=== PATIENT | female | born 1950 | race Caucasian/White ===

== ENCOUNTER → 2017-04-29 12:22 | Outpatient (CLI) | payer MEDICARE, SELFPAY ==
--- NOTE | 2017-04-29 12:26 | RAD_ITS ---
STUDY: X-RAY - LUMBAR SPINE REASON FOR EXAM: Female, 66 years old. Right sided low back pain TECHNIQUE: 5 view(s) of the lumbar spine were obtained. COMPARISON: None FINDINGS: Normal lumbar lordosis. There is no substantial scoliosis. There is a normal alignment of the vertebrae. There is multilevel endplate spondylosis of the lumbar vertebrae. There is multi-level degenerative disc disease with multi-level disc space narrowing. Large amount of stool in the rectal vault can suggest constipation. Stool throughout the colon. The soft tissue structures are unremarkable. RAD/L/S Spine Min 4 Views IMPRESSION: Degenerative changes of the spine, as detailed above. Constipation Electronically Signed: Rakan Heredia MD at 20:58 EST , Service support ,
== END ==
PROVIDERS: Family Provider Internal Medicine; PCP Internal Medicine; Visit Provider Internal Medicine
DX: M54.5 Low back pain (principal)
CPT/HCPCS: 72110

== ENCOUNTER → 2017-05-03 10:26 | Outpatient (CLI) | payer MEDICARE, SELFPAY ==
--- NOTE | 2017-05-03 10:44 | CT_ITS ---
STUDY: CT ABDOMEN AND PELVIS WITHOUT CONTRAST REASON FOR EXAM: Female, 66 years old. Right lower back pain. Microscopic hematuria. RADIATION DOSAGE (If Supplied By Facility): CTDIvol = ( 6.89 ) mGy, DLP = ( 335.69 ) mGycm TECHNIQUE: Transaxial images were obtained from the dome of the diaphragm to the symphysis pubis without oral contrast, and without intravenous contrast. Sagittal and coronal images were reconstructed. Individualized dose optimization techniques were used for this CT. COMPARISON: Comparison is made with prior examination dated April 23, 2016. FINDINGS: There is evidence of bilateral breast prosthesis. Calcification is seen along the peripheral aspect of the breast prostheses worse on the right side. The visualized lung bases are unremarkable. Coronary artery calcification. Stable 1.6 cm septated cyst in the anterior aspect of the left lobe of the liver adjacent to the falciform ligament. Normal gallbladder and extrahepatic biliary system. There are multiple benign calcified granulomata of the spleen. Stable calcified splenic artery aneurysm measuring 9.4 mm. Normal pancreas. Normal bilateral adrenal glands. Normal right kidney. Normal left kidney. Normal visualized stomach. Normal small intestine. Normal colon. There are surgical clips in the region of the appendix consistent with a prior appendectomy. Normal abdominal aorta. Normal inferior vena cava. There is borderline retroperitoneal lymphadenopathy with enlarged nodes no greater than 10mm in the short axis diameter. Normal urinary bladder. There is a small umbilical hernia containing fat. Grade 1 anterior listhesis of L5 on S1. CT/Abdomen/Pelvis without Cont IMPRESSION: No acute abnormality is seen. Electronically Signed: Ant Funez MD at 11:26 EST Tel [phone], Service support ,
== END ==
PROVIDERS: Family Provider Internal Medicine; PCP Internal Medicine; Visit Provider Internal Medicine
DX: M54.5 Low back pain (principal)
CPT/HCPCS: 74176

== ENCOUNTER 2017-06-17 15:00 | Outpatient (RCR) | payer MEDICARE, SELFPAY ==
--- NOTE | 2017-05-05 16:33 | HP.PTEVAL ---
Patient's Visit Information VALERIA WHEELER is a 66 year old F referred to Physical Therapy by Sarah TERRY with a diagnosis of RIGHT LOWER BACK PAIN ,DDD LUMBAR SPINE. Date of Evaluation: 05/05/17 Physical Therapist: Alvaro Rodriguez PT, - Visit Plan Frequency: 2x /Week Duration: 4 Weeks Plan: modalities,DLS,POSTURAL EXS' - Subjective Subjective: This 66 y/o female presents to physical therapy with right low back pain and DDD lumbar.Patient has had ocassionally pain lateral thigh buring. Patient has right lumbar pain 2 months incidous onset noticed latetal pelvis pain with ADLS. Intially ,symptoms worse with sleeping at night. Pain is symptoms decribed as ache ,sharp pain in back.Coughing/sneezing good. Bowel/bladder good.Symptoms better with advil.Seen DR Akers plan PT and had x-rays and Cat scan- for viseral pain. Did showed spondylotothesis L5-S1.9/10 pain at night. SOCAIL: . VOVATION: retired - Pain Right Back Pain Intensity (Out of 10): 3 Pain Intensity Range: 10 - Objective POSTURE: mild foward posture. GAIT: reciprocal pattern. NUERO: denies parathesia/tingling,reflexes 2/3 ,L3-4,L4-5,L5-S1. PALPATION: tender right erector spinals. SYMMTRIES : align. MMT: 4/5 quads/hams ,hip flexion 4-/5,abd 4-/5,ankle 4/5. LUMBAR ROM: flexion WNL,extension WFL pain right lumbar ,side glides to right pain right lumbar ,left side glides WNL. LUMBAR QUADRANT TO RIGHT +. FLEXABLITY: hams WNL - Special Tests L/S Slump test left side: Negative L/S Slump test right side: Negative L/S Left Straight Leg Raise: Negative L/S Right Straight Leg Raise: Negative Lumbar Standing: Flexion - Mechanical Response: No effect Lumbar Standing: Flexion - Symptoms During Testing: No effect Lumbar Standing: Flexion - Symptoms After Testing: No effect Lumbar Standing: Extension - Mechanical Response: No effect Lumbar Standing: Extension - Symptoms During Testing: Increases Lumbar Standing: Extension - Symptoms After Testing: No worse Lumbar Standing: Right Side Glides - Mechanical Response: No effect Lumbar Standing: Right Side [place] - Symptoms During Testing: Increases Lumbar Standing: Right Side [place] - Symptoms After Testing: No worse Lumbar Standing: Left Side [place] - Mechanical Response: No effect Lumbar Standing: Left Side [place] - Symptoms During Testing: No effect Lumbar Standing: Left Side [place] - Symptoms After Testing: No effect Lumbar Lying: Flexion - Mechanical Response: No effect Lumbar Lying: Flexion - Symptoms During Testing: No effect Lumbar Lying: Flexion - Symptoms After Testing: No effect Lumbar Lying: Extension - Mechanical Response: No effect Lumbar Lying: Extension - Symptoms During Testing: Increases Lumbar Lying: Extension - Symptoms After Testing: No worse - Goals Goal 1:: Independant with HEP Goal Time Frame: 4-6 Weeks Goal 2:: Independant with posture/body mechanics for ADL'S Goal Time Frame: 4-6 Weeks Goal 3:: Derease right lumbar pain by 50% or greater to improve function to iclude sleeping. Goal Time Frame: 4-6 Weeks Goal 4:: Patient improve lumbar ROM without pain to improve function Goal Time Frame: 4-6 Weeks Goal 5:: Patient be able to perform ADL'S and job demands with min pain. Goal Time Frame: 4-6 Weeks - Rehabilitation Potential Physical Therapy Diagnosis: Patient has lumbar pain on right lumbar region possible lateral stenosis pain with extension and rotation to right ,sleepin worse ,with decrease core strength. Rehabilitation Potential: Good - Anticipated Interventions Patient/Client Instruction: Educate patient on: Condition, Plan of Care For the Purpose of:: To decrease pain, To increase ROM, To improve muscle performance and motor function, To improve ability to perform ADL's, To increase tolerance to activity/condition/position, To improve performance and independence with ADL's, To improve ability of physical actions for home/community/work/leisure, To improve health of tissue, To decrease soft tissue restriction, To increase flexibility/ROM, To improve ability to perform tasks related to life management Therapeutic Exercise to Include: Strength training, Body mechanics, Postural training, Flexibilty training, Dynamic Lumbar Stabilization For the Purpose of:: To decrease pain, To increase ROM, To improve muscle performance and motor function, To improve ability to perform ADL's, To increase tolerance to activity/condition/position, To improve performance and independence with ADL's, To improve ability of physical actions for home/community/work/leisure, To improve health of tissue, To decrease soft tissue restriction, To increase flexibility/ROM TENS: Yes Cryotherapy (ice pack, ice massage): Yes Thermo therapy (hot pack): Yes Ultrasound (thermal/non thermal): Yes For the Purpose of:: To decrease pain, To increase ROM, To improve nutrient delivery to tissue, To increase oxygenation perfusion, To improve health of tissue, To decrease soft tissue restriction Thank you for the opportunity to evaluate your patient. For Medicare and Medicare HMO plans, please review the plan of care and approve it. It will need to be FAXED BACK to us at [phone] for Medicare purposes. Please let me know if there are questions or concerns regarding this plan of care. Physician Signature: Date:
--- NOTE | 2017-06-17 15:01 | HP.PTREVAL_ITS ---
Sarah Akers, It has been my pleasure to treat VALERIA WHEELER over the last 6 visits for RIGHT LOWER BACK PAIN ,DDD LUMBAR SPINE. Please see the progress note below for an update on the physical therapy plan of care! Subjective: Doing good no pain today Objective/Function: ODALIS TX WELL DID WITH EX'S NO PAIN. PROGRESSING WITH INCREASING STRENGTH Plan Plan: modalities,DLS,POSTURAL EXS' Goals Goal 1:: Independant with HEP Goal Time Frame: 4-6 Weeks Goal 2:: Independant with posture/body mechanics for ADL'S Goal Time Frame: 4-6 Weeks Goal 3:: Derease right lumbar pain by 50% or greater to improve function to iclude sleeping. Goal Time Frame: 4-6 Weeks Goal 4:: Patient improve lumbar ROM without pain to improve function Goal Time Frame: 4-6 Weeks Goal 5:: Patient be able to perform ADL'S and job demands with min pain. Goal Time Frame: 4-6 Weeks Anticipated Interventions Patient/Client Instruction: Educate patient on: Condition, Plan of Care For the Purpose of:: To decrease pain, To increase ROM, To improve muscle performance and motor function, To improve ability to perform ADL's, To increase tolerance to activity/condition/position, To improve performance and independence with ADL's, To improve ability of physical actions for home/ community/work/leisure, To improve health of tissue, To decrease soft tissue restriction, To increase flexibility/ROM, To improve ability to perform tasks related to life management Therapeutic Exercise to Include: Strength training, Body mechanics, Postural training, Flexibilty training, Dynamic Lumbar Stabilization For the Purpose of:: To decrease pain, To increase ROM, To improve muscle performance and motor function, To improve ability to perform ADL's, To increase tolerance to activity/condition/position, To improve performance and independence with ADL's, To improve ability of physical actions for home/ community/work/leisure, To improve health of tissue, To decrease soft tissue restriction, To increase flexibility/ROM TENS: Yes Cryotherapy (ice pack, ice massage): Yes Thermo therapy (hot pack): Yes Ultrasound (thermal/non thermal): Yes For the Purpose of:: To decrease pain, To increase ROM, To improve nutrient delivery to tissue, To increase oxygenation perfusion, To improve health of tissue, To decrease soft tissue restriction Please do not hesitate to contact me at [phone] by phone or Fax: if you have questions or concerns regarding this new plan of care! Sincerely, Alvaro Rodriguez PT,
--- NOTE | 2017-10-29 15:54 | HP.PTDCNRP_ITS ---
HP - Discharge Summary (1) - Patient Information VALERIA WHEELER was seen in my office for initial evaluation on 05/05/17. The following Plan of Care was established for this patient: Initial Frequency: 2x /Week Initial Duration: 4 Weeks - Anticipated Interventions Patient/Client Instruction: Educate patient on: Condition, Plan of Care For the Purpose of:: To decrease pain, To increase ROM, To improve muscle performance and motor function, To improve ability to perform ADL's, To increase tolerance to activity/condition/position, To improve performance and independence with ADL's, To improve ability of physical actions for home/ community/work/leisure, To improve health of tissue, To decrease soft tissue restriction, To increase flexibility/ROM, To improve ability to perform tasks related to life management Therapeutic Exercise to Include: Strength training, Body mechanics, Postural training, Flexibilty training, Dynamic Lumbar Stabilization For the Purpose of:: To decrease pain, To increase ROM, To improve muscle performance and motor function, To improve ability to perform ADL's, To increase tolerance to activity/condition/position, To improve performance and independence with ADL's, To improve ability of physical actions for home/ community/work/leisure, To improve health of tissue, To decrease soft tissue restriction, To increase flexibility/ROM TENS: Yes Cryotherapy (ice pack, ice massage): Yes Thermo therapy (hot pack): Yes Ultrasound (thermal/non thermal): Yes For the Purpose of:: To decrease pain, To increase ROM, To improve nutrient delivery to tissue, To increase oxygenation perfusion, To improve health of tissue, To decrease soft tissue restriction This patient was last seen in our office 06/17/17. Pertinent comments regarding their Physical therapy will appear below: This patient seen for PT for lumbar pain focusing on DLS,postural ex's and modalities for pain releivw. Patient doing well thus is d/c. At this point I will be discontinuing this patient from physical therapy. I would be happy to see this patient again in the future if found appropriate by the physician. Thank you! Alvaro Rodriguez, PT,
== END 2017-06-17 19:00 | disposition home or self-care (01) ==
LOC: PT 15:00
PROVIDERS: Family Provider Internal Medicine; PCP Internal Medicine; Visit Provider Internal Medicine
DX: M54.5 Low back pain (principal); M51.36 Other intervertebral disc degeneration, lumbar region
CPT/HCPCS: 97014; 97035; 97110; 97162; G0283

== ENCOUNTER → 2017-07-02 10:15 | Outpatient (CLI) | payer MEDICARE, SELFPAY ==
--- NOTE | 2017-07-02 10:45 | MRI_ITS ---
STUDY: MRI LUMBAR SPINE WITHOUT CONTRAST REASON FOR EXAM: Female, 66 years old. Low back pain TECHNIQUE: Standardized fat and water weighted pulse sequences were obtained in the sagittal and axial planes. COMPARISON: X-ray 04/29/2017 FINDINGS: There is a transitional vertebra designated L5 for the purposes of this dictation (image 9/13 sagittal T2). T12-L1: There is mild disc desiccation (image 7/13 sagittal T2). There is disc desiccation, loss of disc space height, endplate spondylosis and broad-based central/right preforaminal disc protrusion at T11-T12. Spinal stenosis is mild (image 8, 7, 6/13 sagittal T2, 28/30 axial T2). There is degenerative disc disease at the lower thoracic spine (image 7/13 sagittal T2). There is mild curvature at the thoracolumbar region with a convexity to the left (image 19, 20/27 coronal localizer). Normal conus medullaris that terminates at the T12-L1 level. L1-2: There is mild disc desiccation (image 7/13 sagittal T2). L2-3: There is mild disc desiccation (image 9/13 sagittal T2). L3-4: There is mild disc desiccation and mild facet osteoarthritis (image 7/30 axial T2, 8, 9/13 sagittal T2).. L4-5: There is disc desiccation, facet osteoarthritis and hypertrophy and mild degenerative spondylolisthesis (image 9, 8/13 sagittal T2, /30 axial T2). Spinal stenosis is mild. L5-S1: Normal endplates. Normal disc height, hydration and morphology. Normal bilateral facet joints. Normal central canal and bilateral lateral recesses. Normal bilateral intervertebral neural foramina. 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 There is chronic osseous erosion of the sacrum. Normal visualized sacral ala. Normal visualized paraspinous soft tissue structures. MRI/Spine Lumbar (Routine) IMPRESSION: Transitional vertebra designated L5 for the purposes of this dictation, presumably partial sacralization of L5 Mild degenerative spondylolisthesis, L4-L5, with mild spinal stenosis Degenerative disc protrusion, T11-T12, with mild spinal stenosis Multilevel degenerative disc disease Mild curvature at the thoracolumbar region with a convexity to the left Electronically Signed: Darrell Ferreira MD at 10:52 EDT Tel , Service support ,
== END ==
PROVIDERS: Family Provider Internal Medicine; PCP Internal Medicine; Visit Provider Internal Medicine
DX: M54.9 Dorsalgia, unspecified (principal)
CPT/HCPCS: 72148

== ENCOUNTER → 2018-01-20 09:47 | Outpatient (CLI) | payer MEDICARE, SELFPAY ==
--- NOTE | 2018-01-20 09:49 | BI_ITS ---
MAMMOGRAPHY - BILATERAL SCREENING REASON FOR EXAM: Female, 67 years old. Routine annual screening examination. PERTINENT HISTORY: Non-contributory. Bilateral breast implants. TECHNIQUE: Digital bilateral breast gurpreet (3D mammographic acquisition) in the CC and MLO projections. 2-D mediolateral oblique (MLO) and craniocaudad (CC) views of both breasts were obtained. CAD: Full Field Digital Mammography with Computer Added Detection was performed. COMPARISON: Comparison is made with prior examination dated January 19, 2017 and September 05, 2013. FINDINGS: Breast Composition: The breasts are heterogeneously dense, which may obscure small masses. There are no dominant masses or suspicious calcifications. Stable appearance of the bilateral breast implants with calcifications involving the margins slightly more prominent on the right side. No other significant abnormalities are identified. There has been no significant change since the prior study. BI/SCREENING MAMM (CAD), BILAT IMPRESSION: Stable bilateral screening mammogram. Yearly follow-up mammogram recommended. (A) ASSESSMENT CATEGORY: BIRADS Category 2: Benign. A letter regarding these results will be sent to the patient by the facility within 30 days. Approximately 10% of breast cancers are not detected by mammography. A normal mammogram should not delay biopsy of a clinically suspicious abnormality. [id number] Electronically Signed: Ant Funez MD at 13:56 EDT Tel [phone], Service support ,
== END ==
PROVIDERS: Family Provider Internal Medicine; PCP Internal Medicine; Referring Provider Internal Medicine; Visit Provider Internal Medicine
DX: Z12.31 Encounter for screening mammogram for malignant neoplasm of breast (principal)
CPT/HCPCS: 77063; 77067

== ENCOUNTER → 2018-03-07 12:31 | Outpatient (CLI) | payer MEDICARE, SELFPAY ==
--- NOTE | 2018-03-07 12:43 | RAD_ITS ---
STUDY: X-RAY CHEST REASON FOR EXAM: Female, 67 years old. Asthma. TECHNIQUE: Frontal and lateral views of the chest. COMPARISON: September 09, 2015 FINDINGS: There is no new focal consolidation. There are bilateral breast implants in place with peripheral calcifications more pronounced on the right. Normal size heart. Normal mediastinum and josh. Normal visualized pulmonary arteries. Normal visualized aortic arch and descending thoracic aorta. Normal visualized thoracic spine. Normal visualized ribs, clavicles, and shoulders. There is no demonstrated abnormality of the visualized soft tissue structures of the upper abdomen. RAD/Chest PA and Lateral IMPRESSION: No acute cardiopulmonary process. Electronically Signed: Tiara Garcia MD at 17:02 EST Tel , Service support ,
== END ==
PROVIDERS: Family Provider Internal Medicine; PCP Internal Medicine; Referring Provider Nurse Practitioner Gerontology; Visit Provider Nurse Practitioner Gerontology
DX: J45.901 Unspecified asthma with (acute) exacerbation (principal)
CPT/HCPCS: 71046

== ENCOUNTER → 2018-05-13 09:54 | Outpatient (CLI) | payer MEDICARE, SELFPAY ==
--- NOTE | 2018-05-13 09:57 | ECHOD_ITS ---
Reason For Study: SOB Procedure This was a 2D Doppler, Color Flow transthoracic echocardiogram. Exam performed in department. Left Ventricle Normal LV size. Left ventricular systolic function is normal. The estimated ejection fraction is 60 %. Stage 1 diastolic dysfunction. No regional wall motion abnormalities noted. Right Ventricle Normal RV size. Normal systolic function. Atria Normal left atrium. Normal right atrium. Mitral Valve Normal mitral valve. Tricuspid Valve Normal tricuspid valve. Mild tricuspid valve insufficiency. Pulmonary artery systolic pressure is 30 mmHg. Aortic Valve Normal aortic valve. Trisinus/trileaflet aortic valve. Pulmonic Valve Normal pulmonic valve. Great Vessels Normal aortic root. The pulmonary artery is normal size. Normal inferior vena cava. Pericardium/Pleural No pericardial effusion. MMode/2D Measurements & Calculations LVIDd: 4.2 cm IVSd: 0.92 cm Ao root diam: 3.2 cm LVIDs: 2.5 cm LVPWd: 0.87 cm FS: 41.0 % LAV(MOD-bp): 55.9 ml EDV(MOD-sp4): 75.0 ml EDV(MOD-sp2): 70.6 ml LAV(MOD-bp) Indexed: 34.0 ml/m2 ESV(MOD-sp4): 28.3 ml EF(MOD-sp2): 59.7 % LAV(MOD-sp2): 59.8 ml EF(MOD-sp4): 62.3 % LAV(MOD-sp4): 50.6 ml SV(MOD-sp4): 46.7 ml SV(MOD-sp2): 42.1 ml LA A4 area: 18.3 cm2 LA dimension(2D): 3.8 cm RA A4 area: 14.6 cm2 Doppler Measurements & Calculations MV E max hever: 96.6 cm/sec Lat Peak E' Hever: 7.6 cm/sec Med Peak E' Hever: 6.6 cm/sec MV A max hever: 85.8 cm/sec E/E' lat: 12.8 E/E' med: 14.7 MV E/A: 1.1 Ao V2 max: 130.6 cm/sec LV V1 max: 105.6 cm/sec PA V2 max: 100.8 cm/sec Ao max P.8 mmHg LV V1 max P.5 mmHg TR max hever: 250.5 cm/sec TR max P.1 mmHg Interpretation Summary Normal LV size. Left ventricular systolic function is normal. The estimated ejection fraction is 60 %. Stage 1 diastolic dysfunction. Mild tricuspid valve insufficiency. The global longitudinal strain = -17.6 % (normal). Ordering Physician: Sarah Akers Referring Physician: Sarah Akers Performed By: Angie Jones RDCS
== END ==
PROVIDERS: Family Provider Internal Medicine; PCP Internal Medicine; Referring Provider Internal Medicine; Visit Provider Internal Medicine
DX: R06.02 Shortness of breath (principal)
CPT/HCPCS: 93306

== ENCOUNTER → 2018-06-24 09:48 | Outpatient (CLI) | payer MEDICARE, SELFPAY ==
[2018-06-24 12:36] LABS: Absolute Lymphocyte Count 1.48 X10^3/ul (0.83-4.51); Absolute Neutrophil Count 4.2 X10^3/uL (2.0-7.7); Basophil# 0.02 X10^3/uL; Basophil% 0.3 % (0-1); Eosinophil# 0.36 X10^3/uL; Eosinophils% 5.5 % (0-5); Hematocrit 43.5 % (37-47); Hemoglobin 13.7 g/dl (12.0-15.0); Lymphocyte # 1.48 X10^3/ul (4.0); Lymphocyte % 22.6 % (19-41); Mean Corp Hgb Conc 31.5 g/gl (32-36); Mean Corpuscular Hgb 31.6 pg (27.0-32.0); Mean Corpuscular Volume 100.5 fL (81-99); Monocyte# 0.51 X10^3/uL; Monocyte% 7.8 % (0-10); Neutrophil # 4.15 X10^3/uL (2.7-7.7); Neutrophil % 63.5 % (47-70); POSITIVE COUNT NO; POSITIVE DIFFERENTIAL NO; POSITIVE MORPHOLOGY NO; Platelet Count 185 K/mm3 (150-450); RBC Distribution Width CV 12.9 % (11.6-14.6); RBC Distribution Width SD 47.1 fl (35.1-43.9); Red Blood Count 4.33 M/mm3 (4.2-5.4); White Blood Count 6.5 K/mm3 (4.4-11.0)
[2018-07-02 14:33] LABS: Immunoglobulin E < 2 IU/mL (6-495)
== END ==
PROVIDERS: Family Provider Internal Medicine; PCP Internal Medicine; Referring Provider Internal Medicine Pulmonary Disease; Visit Provider Internal Medicine Pulmonary Disease
DX: J45.909 Unspecified asthma, uncomplicated (principal); T78.40XA Allergy, unspecified, initial encounter
CPT/HCPCS: 36415; 82785; 85025

== ENCOUNTER → 2018-08-02 | Outpatient (CLI) | payer MEDICARE, SELFPAY | END | disposition home or self-care (01) | PROVIDERS: Family Provider Internal Medicine; PCP Internal Medicine; Referring Provider Internal Medicine Pulmonary Disease; Visit Provider Internal Medicine Pulmonary Disease | DX: J45.909 Unspecified asthma, uncomplicated (principal); T78.40XA Allergy, unspecified, initial encounter | CPT/HCPCS: 36415 ==

== ENCOUNTER → 2018-09-13 | Outpatient (CLI) | payer MEDICARE, SELFPAY ==
--- NOTE | 2018-09-13 | CYSPIN_PTH ---
PATIENT: VALERIA WHEELER LOC: [facility] U#:[id number] AGE/SX: 67/F ROOM: RE09/13/[address]: Dr. Sarah Akers MD : [id number] BED: DIS: 09/13/2018 SPEC #: [id number] RECD: 09/14/18 10:51 STATUS: SHIKHA MCKINLEYKarla #: [id number] YAMILEX: 09/13/18 00:[address]: Sarah Akers DEPT: CYTOLOGY RECD BY: Antonino Mchugh Tissues: Urine Procedures: Pap Stain (control) Special Stain Group II AFB Stain (control) Cytospin Fluid HEADER OPERATION: Not noted PRE-OP DIAGNOSIS: Abnormal urine TISSUE SUBMITTED: Urine for cytology DIAGNOSIS CYTOLOGY Urine, cytology: Negative for malignant cells. Benign urothelial cells, histiocytes, acute and chronic inflammatory cells and numerous bacteria present. Acid fast stain with appropriate control is negative for acid fast bacilli. CE:geeta 09/14/18 CYTOLOGY STUDY Slides are reviewed. CYTOLOGY GROSS Received is 15 ml of yellow cloudy fluid labeled with the patient's name and and designated per the requisition as urine. Submitted for cytology preparation. / 09/14/18 TC:2 CPT: 11437, 22055
[2018-09-13 13:11] LABS: Cytology, Body Fluid / CSF SEE PATHOLOGY REPORT
[2018-09-13 13:38] LABS: Color, Urine Yellow (Yellow); Glucose, Dipstick Normal (Normal); Ketone-Dipstick 5 mg/dl (Negative); Leukocyte Esterase-Dipstick 500 /ul (Negative); Nitrite-Dipstick Negative (Negative); Occult Blood-Urine Negative /ul (Negative); Protein-Dipstick 15 mg/dl (Negative); Specific Gravity, Urine 1.025 (1.002-1.030); Urine Bilirubin Dipstick Negative (Negative); Urine Clarity Clear (Clear); Urine Urobilinogen Normal (Normal)
== END | disposition home or self-care (01) ==
LOC: LABSPEC 12:21
PROVIDERS: Referring Provider Internal Medicine; Visit Provider Internal Medicine
DX: R82.90 Unspecified abnormal findings in urine (principal)
CPT/HCPCS: 81002; 88108; 88313

== ENCOUNTER → 2019-01-31 08:15 | Outpatient (CLI) | payer MEDICARE, SELFPAY ==
[2019-01-31 10:14] LABS: Absolute Lymphocyte Count 1.29 X10^3/uL (0.83-4.51); Absolute Neutrophil Count 4.1 X10^3/uL (2.0-7.7); Basophil# 0.04 X10^3/uL; Basophil% 0.7 % (0-1); Eosinophil# 0.14 X10^3/uL; Eosinophils% 2.3 % (0-5); Hematocrit 41.4 % (37-47); Hemoglobin 13.1 g/dL (12.0-15.0); Lymphocyte # 1.29 X10^3/ul (4.0); Lymphocyte % 21.5 % (19-41); Mean Corp Hgb Conc 31.6 g/dL (32-36); Mean Corpuscular Hgb 31.3 pg (27.0-32.0); Mean Corpuscular Volume 98.8 fL (81-99); Mean Platelet Vol. 10.5 fl (6.2-12.0); Monocyte# 0.46 X10^3/uL; Monocyte% 7.7 % (0-10); NRBC Flagged by Analyzer 0 % (0-5); Neutrophil # 4.05 X10^3/uL (2.7-7.7); Neutrophil % 67.5 % (47-70); Platelet Count 215 K/mm3 (150-450); RBC Distribution Width CV 13.3 % (11.6-14.6); RBC Distribution Width SD 48.4 fl (35.1-43.9); Red Blood Count 4.19 M/mm3 (4.2-5.4)
[2019-02-03 17:03] LABS: Immunoglobulin E 4 IU/mL (6-495)
== END ==
PROVIDERS: Family Provider Internal Medicine; PCP Internal Medicine; Referring Provider Internal Medicine Pulmonary Disease; Visit Provider Internal Medicine Pulmonary Disease
DX: J45.909 Unspecified asthma, uncomplicated (principal); Z91.09 Other allergy status, other than to drugs and biological substances
CPT/HCPCS: 36415; 82785; 85025

== ENCOUNTER → 2019-09-07 11:23 | Outpatient (CLI) | payer MEDICARE, SELFPAY ==
[2019-09-11 12:07] LABS: Immunoglobulin A 62 mg/dL (87-352); Immunoglobulin G 473 mg/dL (586-1602); Immunoglobulin M 160 mg/dL (26-217)
[2019-09-11 13:14] LABS: Immunoglobulin E 8 IU/mL (6-495)
== END ==
PROVIDERS: PCP Internal Medicine; Referring Provider Internal Medicine Pulmonary Disease; Visit Provider Internal Medicine Pulmonary Disease
DX: J45.909 Unspecified asthma, uncomplicated (principal)
CPT/HCPCS: 36415; 82784; 82785

== ENCOUNTER → 2019-10-10 08:49 | Outpatient (CLI) | payer MEDICARE, SELFPAY ==
--- NOTE | 2019-10-10 08:54 | CDU_ITS ---
Reason For Study: carotid stenosis Rt. Velocities/BP Lt. Velocities/BP Prox CCA 79.9/18.6 cm/sec. Prox CCA 82.5/18.6 cm/sec. Mid CCA 94.3/22.6 cm/sec. Mid CCA 68.2/18.6 cm/sec. Dist CCA 53.9/13.4 cm/sec. Dist CCA 60.4/16.0 cm/sec. Prox ICA 56.5/14.7 cm/sec. Prox ICA 59.1/19.9 cm/sec. Mid ICA 73.4/30.4 cm/sec. Mid ICA 64.3/21.2 cm/sec. Dist ICA 95.6/38.2 cm/sec. Dist ICA 68.2/27.8 cm/sec. Rt. ICA/CCA = 1.0. Lt. ICA/CCA = 1.0. Prox ECA 74.7/9.5 cm/sec. Prox ECA 49.9/8.2 cm/sec. Rt. Vert. 35.6/8.2 cm/sec. Lt. Vert. 53.8/27.8 cm/sec. Right Extracranial There is intimal thickening but no significant atherosclerotic plaque noted in the right common carotid artery. There is heterogeneous, irregular atherosclerotic plaque noted in the right internal carotid artery. There is homogeneous, smooth atherosclerotic plaque noted in the right external carotid artery. Antegrade flow is noted in the right vertebral artery. Left Extracranial There is intimal thickening but no significant atherosclerotic plaque noted in the left common carotid artery. There is heterogeneous, irregular atherosclerotic plaque noted in the left internal carotid artery. There is intimal thickening but no significant atherosclerotic plaque noted in the left external carotid artery. Antegrade flow is noted in the left vertebral artery. Interpretation Summary Mild (<50%) stenosis right extracranial internal carotid. Mild (<50%) stenosis left extracranial internal carotid. Flow within the vertebral arteries is antegrade bilaterally. Ordering Physician: Sarah Akers Performed By: Naldo Pereira RVT
== END ==
PROVIDERS: PCP Internal Medicine; Referring Provider Internal Medicine; Visit Provider Internal Medicine
DX: I65.23 Occlusion and stenosis of bilateral carotid arteries (principal)
CPT/HCPCS: 93880

== ENCOUNTER → 2019-10-12 09:23 | Outpatient (CLI) | payer MEDICARE, SELFPAY ==
[2019-10-13 20:07] LABS: IgG, Quant 456 mg/dL (586-1602); Immunoglobulin G, Subclass 1 274 mg/dL (248-810); Immunoglobulin G, Subclass 2 108 mg/dL (130-555); Immunoglobulin G, Subclass 3 27 mg/dL (15-102)
[2019-10-13 20:25] LABS: Immunoglobulin G, Subclass 4 25 mg/dL (2-96)
== END ==
PROVIDERS: PCP Internal Medicine; Referring Provider Internal Medicine Pulmonary Disease; Visit Provider Internal Medicine Pulmonary Disease
DX: J45.909 Unspecified asthma, uncomplicated (principal)
CPT/HCPCS: 36415; 82784; 82787

== ENCOUNTER → 2019-11-01 07:57 | Outpatient (CLI) | payer MEDICARE, SELFPAY ==
--- NOTE | 2019-11-01 08:01 | CT_ITS ---
STUDY: CTA OF THE ABDOMINAL AORTA AND VISCERAL BRANCHES. REASON FOR EXAM: Female, 68 years old. ANEURYSM SPLENIC ARTERY RADIATION DOSAGE (If Supplied By Facility): CTDIvol = ( 18.26 ) mGy, DLP = ( 284.59 ) mGycm TECHNIQUE: Axial CT angiography multi-detector data acquisition was obtained from the dome of the liver to the iliac crests following intravenous administration of IV 100 ML ISOVUE 370. Axial images and MIP images were reconstructed from the axial data set. Post-processing of the angiographic images was performed, with multiplanar reformation and 3D reconstruction. Individualized dose optimization techniques were used for this CT. TECHNICAL QUALITY: Good COMPARISON: Comparison is made with prior examination dated 05/03/2017. Descriptors of Narrowing: None (0%) Mild (< 50%) Moderate (50-70%) Severe (70-90%) Subtotal/Total Occlusion (90-100%) Non-Evaluable (technically non-diagnostic FINDINGS: Once again, stable appearance of the bilateral breast implants with dense rim calcifications bilaterally. Stable mild increased markings at the lung bases suggestive of scarring. Abdominal aorta: No demonstrated narrowing. Celiac and superior mesenteric arteries: No demonstrated narrowing. Stable appearance of the 1 cm splenic artery aneurysm. This is in the region of the splenic hilum. Fine rim-like calcification is present. Stable splenic granulomas. Inferior mesenteric artery: No demonstrated narrowing. Right renal artery(arteries): No demonstrated narrowing. Left renal artery(arteries): No demonstrated narrowing. This space narrowing and spondylosis with subchondral sclerosis at the T12 11 level. Stable minimal anterolisthesis of L5 on S1. CT/CTA Abdomen W/WO Contrast IMPRESSION: Stable appearance of the 1 cm splenic artery aneurysm with rim-like calcification in the region of the splenic hilum. Electronically Signed: Ant Funez, at 11:18 EDT , Service support ,
[2019-11-01 08:21] LABS: CREATININE FINGERSTICK 0.7 mg/dL (0.55-1.02)
== END ==
PROVIDERS: PCP Internal Medicine; Referring Provider Internal Medicine; Visit Provider Internal Medicine
DX: I72.8 Aneurysm of other specified arteries (principal)
CPT/HCPCS: 74175; Q9967

== ENCOUNTER → 2019-12-13 11:22 | Outpatient (CLI) | payer MEDICARE, SELFPAY ==
--- NOTE | 2019-12-13 11:24 | BI_ITS ---
MAMMOGRAPHY - BILATERAL SCREENING REASON FOR EXAM: Female, 69 years old. Routine annual screening examination. PERTINENT HISTORY: Non-contributory. Bilateral breast implants. TECHNIQUE: Digital bilateral breast ant (3D mammographic acquisition) in the CC and MLO projections. 2-D mediolateral oblique (MLO) and craniocaudad (CC) views of both breasts were obtained. CAD: Full Field Digital Mammography with Computer Added Detection was performed. COMPARISON: Comparison is made with prior study dated 01/20/2018 and 01/19/2017. FINDINGS: Breast Composition: The breasts are heterogeneously dense, which may obscure small masses. There are no dominant masses or suspicious calcifications. Stable appearance of the bilateral breast implants with calcifications along the margins of the implants more prominent on the right side. No other significant abnormalities are identified. There has been no significant change since the prior study. BI/SCREEN MAMM (CAD) W/ANT BILAT IMPRESSION: Stable bilateral screening mammogram. Yearly follow-up mammogram recommended. (A) ASSESSMENT CATEGORY: BIRADS Category 2: Benign. A letter regarding these results will be sent to the patient by the facility within 30 days. Approximately 10% of breast cancers are not detected by mammography. A normal mammogram should not delay biopsy of a clinically suspicious abnormality. [id number] Electronically Signed: Ant Funez, at 12:49 EDT , Service support ,
--- NOTE | 2019-12-13 11:27 | BD_ITS ---
STUDY: DUAL ENERGY X-RAY ABSORPTIOMETRY / DXA REASON FOR EXAM: Female, 69 years old. 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 COMPARISON: Comparison is made with prior study 01/19/2017. FINDINGS: Lumbar Spine (L1-L4): g/cm2 (0.835) / T-score (-3.0) / Z-score (-1.4) Findings are suggestive of osteoporosis with a high fracture risk. Increased thoracic kyphosis. Left Femur Total: g/cm2 (0.770) / T-score (-1.9) / Z-score (-0.4) Left Femoral Neck: g/cm2 (0.726) / T-score (-2.2) / Z-score (-0.6) Right Femur Total: g/cm2 (0.719) / T-score (-2.3) / Z-score (-0.8) Right Femoral Neck: g/cm2 (0.659) / T-score (-2.7) / Z-score (-1.0) The T-Scores on the most recent prior examination were: Lumbar Spine (L1-L4): There has been worsening of bone density since the previous examination. Left Femur Total: which represents a worsening of 0.6%. Right Femur Total: which represents a worsening of 8.1%. BD/Dexa Bone Density Study IMPRESSION: The patient is considered osteoporotic as outlined below according to World Julio C Organization (WHO) criteria with a high fracture risk. There has been worsening of bone density since the previous examination. Reference Information: The T-score is the number of standard deviations above or below the standard which is normal for young adults at their peak bone mineral density. The World Health Organization (WHO) interprets the T-scores as follows: Above -1 Normal bone density Between -1 and -2.5 Osteopenia Equal to / or below -2.5 Osteoporosis As a practical clinical guideline, osteopenia may be graded as follows: Mild -1 through -1.5 Moderate -1.6 through -2.0 Severe -2.1 through -2.4 The Z-score is the number of standard deviations above or below age-matched controls. A Z-score of less than -1.5 would be considered abnormal. References: 1. NIH Osteoporosis and Related Bone Diseases http://www.osteo.org 2. International Society for Clinical Densitometry http://www.iscd.org 3. National Osteoporosis Foundation http://www.nof.org Electronically Signed: Ant Funez, at 14:12 EDT , Service support ,
== END ==
PROVIDERS: PCP Internal Medicine; Referring Provider Internal Medicine; Visit Provider Internal Medicine
DX: Z12.31 Encounter for screening mammogram for malignant neoplasm of breast (principal); Z78.0 Asymptomatic menopausal state
CPT/HCPCS: 77063; 77067; 77080

== ENCOUNTER → 2020-04-18 12:25 | Outpatient (CLI) | payer MEDICARE, SELFPAY ==
--- NOTE | 2020-04-18 12:34 | MRI_ITS ---
STUDY: MRI LUMBAR SPINE WITHOUT CONTRAST REASON FOR EXAM: Female, 69 years old. RIGHT SIDED BACK PAIN TECHNIQUE: Standardized fat and water weighted pulse sequences were obtained in the sagittal and axial planes. COMPARISON: 07/02/2017 FINDINGS: T11-T12: No change in the moderate right paracentral and foraminal protrusion which produces moderate spinal stenosis and mild right neural foraminal stenosis. T12-L1: Normal endplates. Normal disc height, hydration and morphology. Normal bilateral facet joints. Normal central canal and bilateral lateral recesses. Normal bilateral intervertebral neural foramina. Normal lumbar lordosis. Mild levoscoliosis of the thoracolumbar spine. Normal conus medullaris that terminates at the L1. L1-2: Normal endplates. Normal disc height, hydration and morphology. Normal bilateral facet joints. Normal central canal and bilateral lateral recesses. Normal bilateral intervertebral neural foramina. L2-3: Mild bilateral facet hypertrophy and ligament flavum hypertrophy. No change in the mild bilobed disc protrusion which produces mild spinal stenosis, mild bilateral lateral recess stenosis, mild left neural foraminal stenosis and moderate right neural foraminal stenosis with abutment of the right L2 nerve root laterally. L3-4: Mild bilateral facet hypertrophy and ligament flavum hypertrophy. No change in the mild bilobed disc protrusion which produces mild spinal stenosis with mild bilateral lateral recess stenosis and mild bilateral neural foraminal stenosis. L4-5: Moderate bilateral facet hypertrophy and mild ligament flavum hypertrophy. No change in the 2 mm of anterolisthesis of L4 on L5 with a mild broad disc protrusion which produces mild spinal stenosis and mild bilateral neural foraminal stenosis. L5-S1: Rudimentary disc at L5/S1 without spinal stenosis or neural foraminal stenosis. Normal visualized sacral ala. Normal visualized paraspinous soft tissue structures. MRI/Spine Lumbar (Routine) IMPRESSION: No change in 07/02/2017. Electronically Signed: Josh Rodriguez MD at 13:36 EST Tel , Service support ,
== END ==
PROVIDERS: PCP Internal Medicine; Referring Provider Internal Medicine; Visit Provider Internal Medicine
DX: M54.9 Dorsalgia, unspecified (principal)
CPT/HCPCS: 72148

== ENCOUNTER → 2020-12-12 11:33 | Outpatient (CLI) | payer MEDICARE, SELFPAY ==
[2020-12-12 15:12] LABS: Absolute Lymphocyte Count 1.38 X10^3/uL (0.83-4.51); Basophil# 0.05 X10^3/uL; Basophil% 0.9 % (0-1); Eosinophil# 0.94 X10^3/uL; Eosinophils% 16.3 % (0-5); Hematocrit 43.2 % (37-47); Hemoglobin 13.6 g/dL (12.0-15.0); Lymphocyte # 1.38 X10^3/ul (0.83-4.51); Mean Corp Hgb Conc 31.5 g/dL (32-36); Mean Corpuscular Hgb 31.7 pg (27.0-32.0); Mean Corpuscular Volume 100.7 fL (81-99); Mean Platelet Vol. 10.8 fl (6.2-12.0); Monocyte# 0.32 X10^3/uL; Monocyte% 5.6 % (0-10); NRBC Flagged by Analyzer 0 % (0-5); Neutrophil # 3.03 X10^3/uL (2.7-7.7); Neutrophil % 52.5 % (47-70); Platelet Count 180 K/mm3 (150-450); RBC Distribution Width SD 48.3 fl (35.1-43.9); Red Blood Count 4.29 M/mm3 (4.2-5.4); White Blood Count 5.8 K/mm3 (4.4-11.0)
== END ==
PROVIDERS: PCP Internal Medicine; Referring Provider Internal Medicine Pulmonary Disease; Visit Provider Internal Medicine Pulmonary Disease
DX: J45.909 Unspecified asthma, uncomplicated (principal)
CPT/HCPCS: 36415; 85025

== ENCOUNTER → 2021-01-01 10:21 | Outpatient (CLI) | payer MEDICARE, SELFPAY ==
--- NOTE | 2021-01-01 10:24 | BI_ITS ---
MAMMOGRAPHY - BILATERAL SCREENING 3-D TOMOSYNTHESIS REASON FOR EXAM: Female, 70 years old. SCREENING PERTINENT HISTORY: No significant family history. TECHNIQUE: 2-D mammograms and 3-D Tomosynthesis of the breast (s) were performed. CAD was performed. COMPARISON: 12/13/2019 FINDINGS: The breast composition is heterogeneously dense that can obscure small breast masses. Grouped punctate calcifications in the upper-outer quadrant right breast at mid depth and magnification views recommended for further evaluation. No suspicious calcifications left breast.. No dense spiculated masses or suspicious microcalcifications are identified. No architectural distortion is identified. There is no skin thickening or retraction. There has been no significant change since the prior study. Bilateral retroglandular silicone implants appear intact. BI/SCRN MAMM (CAD)W/ANT BILAT IMPRESSION: Grouped punctate calcifications in the upper outer quadrant right breast and magnification views recommended for further evaluation. ASSESSMENT CATEGORY: BIRADS Category 0: Incomplete. Need additional imaging evaluation as above. A letter regarding these results will be sent to the patient by the facility within 30 days. FOLLOW UP RECOMMENDATION: Additional imaging recommended as above. (E) Approximately 10% of breast cancers are not detected by mammography. A normal mammogram should not delay biopsy of a clinically suspicious abnormality. Electronically Signed: Josh Rodriguez MD at 13:25 EDT Tel , Service support ,
== END ==
PROVIDERS: PCP Internal Medicine; Referring Provider Internal Medicine; Visit Provider Internal Medicine
DX: Z12.31 Encounter for screening mammogram for malignant neoplasm of breast (principal)
CPT/HCPCS: 77063; 77067

== ENCOUNTER → 2021-01-08 09:14 | Outpatient (CLI) | payer MEDICARE, SELFPAY ==
--- NOTE | 2021-01-08 09:25 | BI_ITS ---
MAMMOGRAPHY - UNILATERAL DIAGNOSTIC: RIGHT BREAST REASON FOR EXAM: Female, 70 years old. Abnormal screening mammogram. PERTINENT HISTORY: Non-contributory. TECHNIQUE: Compression magnification views of the right breast were obtained. CAD: Full Field Digital Mammography with Computer Added Detection was performed. COMPARISON: Comparison is made with prior mammogram dated 01/01/2021 and 12/13/2019. FINDINGS: Breast Composition: The breasts are heterogeneously dense, which may obscure small masses. The calcifications in the upper outer quadrant of the right breast at the increased in number as compared to prior examination. Biopsy recommended. No other significant abnormalities are identified. BI/DIAG MAMM W/CAD, UNILAT IMPRESSION: Increased number of calcifications within the cluster in the upper outer quadrant of the right breast as described. Biopsy is recommended. ASSESSMENT CATEGORY: BIRADS Category 4: Suspicious - Biopsy Should Be Considered. A letter regarding these results will be sent to the patient by the facility within 30 days. Approximately 10% of breast cancers are not detected by mammography. A normal mammogram should not delay biopsy of a clinically suspicious abnormality. Electronically Signed: Ant Funez MD at 10:49 EDT , Service support ,
== END ==
PROVIDERS: PCP Internal Medicine; Referring Provider Internal Medicine; Visit Provider Internal Medicine
DX: R92.0 Mammographic microcalcification found on diagnostic imaging of breast (principal)
CPT/HCPCS: 77065

== ENCOUNTER → 2021-01-17 10:16 | Outpatient (CLI) | payer MEDICARE, SELFPAY ==
--- NOTE | 2021-01-17 10:46 | HP.PCM_ITS ---
History and Physical Date of Admission: 01/17/21 Visit Reasons: BIRADS 4 RIGHT BREAST Chief Complaint: abn mammo right Backup Operator Required: No Is patient in pain?: No Allergies codeine Allergy (Verified 01/14/21 13:20) Other Medications montelukast 10 mg PO DAILY 09/09/15 [History Confirmed 01/14/21] aspirin 81 mg chewable tablet 81 mg PO DAILY 04/23/20 [History Confirmed 01/14/21] atorvastatin 40 mg tablet 40 mg PO DAILY 04/23/20 [History Confirmed 01/14/21] omeprazole magnesium 20 mg tablet,delayed release 20 mg PO DAILY 04/23/20 [History Confirmed 01/14/21] Lactobacillus acidophilus 1.5 mg (250 million cell) capsule 100 mmu cells PO DAILY 01/14/21 [History Confirmed 01/14/21] citalopram 20 mg tablet 20 mg PO DAILY tab 01/14/21 [History Confirmed 01/14/21] fluticasone furoate 100 mcg-vilanterol 25 mcg/dose inhalation powder 1 inh INHALATION DAILY 01/14/21 [History Confirmed 01/14/21] omega-3 fatty acids 1,000 mg capsule 1,000 mg PO DAILY 01/14/21 [History Confirmed 01/14/21] omega-3 fatty acids 1,000 mg capsule 1,000 mg PO DAILY 01/14/21 [History Confirmed 01/14/21] psyllium husk 0.52 gram capsule 0.52 g PO DAILY 01/14/21 [History Confirmed 01/14/21] vitamin K2 100 mcg capsule 100 mcg PO DAILY 01/14/21 [History Confirmed 01/14/21] Is last menstrual period known: No Post menopausal: Yes Patient : No PFSH Medical History (Updated 01/14/21 @ 13:10 by Solange John) Abnormal mammogram Allergic eosinophilic esophagitis Anxiety Asthma Carotid stenosis Hyperlipidemia Splenic artery aneurysm Surgical History (Updated 01/14/21 @ 13:21 by Solange John) History of breast augmentation History of esophagogastroduodenoscopy (EGD) History of neck surgery History of tubal ligation History of wisdom tooth extraction Family History (Updated 01/14/21 @ 13:11 by Solange John) Father CVA (cerebral vascular accident) Mother CVA (cerebral vascular accident) Social History (Updated 01/14/21 @ 13:11 by Solange John) Smoking Status: Never smoker HPI HPI HPI: VALERIA WHEELER, is a 70 F who presents to the office today for surgical consultation regarding an abnormal mammogram. The patient is referred by Dr. Sarah Akers and a written copy of my surgical consult recommendations will return to her. On 01/01/2021 she had routine bilateral screening mammography. These were compared to previous examinations of 12/13/2019. Breast implants noted. There were felt to be grouped punctate calcifications upper outer quadrant right breast. BI-RADS Category 0. Then on 01/08/2021 she had diagnostic right mammograms. The grouped calcifications were felt to have increased. BI-RADS Category 4. Biopsy recommended. 70-year-old female. G0. Menarche at age 12. No previous breast biopsy. Not on any estrogen replacement therapy. No family history of breast cancer. She does have bilateral implants in place. 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 SCREENING PERTINENT HISTORY: No significant family history. TECHNIQUE: 2-D mammograms and 3-D Tomosynthesis of the breast (s) were performed. CAD was performed. COMPARISON: 12/13/2019 FINDINGS: The breast composition is heterogeneously dense that can obscure small breast masses. Grouped punctate calcifications in the upper-outer quadrant right breast at mid depth and magnification views recommended for further evaluation. No suspicious calcifications left breast.. No dense spiculated masses or suspicious microcalcifications are identified. No architectural distortion is identified. There is no skin thickening or retraction. There has been no significant change since the prior study. Bilateral retroglandular silicone implants appear intact. BI/SCRN MAMM (CAD)W/ANT BILAT IMPRESSION: Grouped punctate calcifications in the upper outer quadrant right breast and magnification views recommended for further evaluation. ASSESSMENT CATEGORY: BIRADS Category 0: Incomplete. Need additional imaging evaluation as above. A letter regarding these results will be sent to the patient by the facility within 30 days. FOLLOW UP RECOMMENDATION: Additional imaging recommended as above. (E) Approximately 10% of breast cancers are not detected by mammography. A normal mammogram should not delay biopsy of a clinically suspicious abnormality. Electronically Signed: Josh Rodriguez MD at 13:25 EDT Tel , Service support , 01/08/2021 MAMMOGRAPHY - UNILATERAL DIAGNOSTIC: RIGHT BREAST REASON FOR EXAM: Female, 70 years old. Abnormal screening mammogram. PERTINENT HISTORY: Non-contributory. TECHNIQUE: Compression magnification views of the right breast were obtained. CAD: Full Field Digital Mammography with Computer Added Detection was performed. COMPARISON: Comparison is made with prior mammogram dated 01/01/2021 and 12/13/2019. FINDINGS: Breast Composition: The breasts are heterogeneously dense, which may obscure small masses. The calcifications in the upper outer quadrant of the right breast at the increased in number as compared to prior examination. Biopsy recommended. No other significant abnormalities are identified. BI/DIAG MAMM W/CAD, UNILAT IMPRESSION: Increased number of calcifications within the cluster in the upper outer quadrant of the right breast as described. Biopsy is recommended. ASSESSMENT CATEGORY: BIRADS Category 4: Suspicious - Biopsy Should Be Considered. A letter regarding these results will be sent to the patient by the facility within 30 days. Approximately 10% of breast cancers are not detected by mammography. A normal mammogram should not delay biopsy of a clinically suspicious abnormality. Electronically Signed: Ant Funez MD at 10:49 EDT , Service support , ROS General General: No weight change, appetite, fatigue, colon cancer, breast cancer or weakness HEENT HEENT: No difficulty swallowing, eye injury, eye surgery, swollen glands or hoarseness Endo Endocrine: No thyroid disease, diabetes mellitus, thyroid cancer, Hair loss, heat intolerance or cold intolerance Musc Musculoskeletal: No back problems, arthritis, rheumatoid arthritis, gout or joint pain Cardio Cardiovascular: No murmur, pacemaker, heart disease, atrial fibrillation, high blood pressure, heart attack, heart stent, palpitations, shortness of breat with exertion or chest pain Psych Psychiatric: Yes anxiety; No depression or hearing voices Resp Respiratory: No shortness of breath, No sleep apnea, No cough, No COPD, Yes asthma, No emphysema and No wheezing Gastro Gastrointestinal: No abdominal pain, No nausea or vomiting, No diarrhea, No constipation, No blood in stool, No acid reflux, No hemorrhoids, No ulcers, No gallbladder problem and No black,tarry stools Black Hematologic: Yes blood thinners, No blood disorders, No bleeding, No anemia and No blood clots Neuro Neurologic: No weakness Exam Const General: cooperative, healthy appearing, comfortable and no acute distress Nutritional Appearance: average body habitus Orientation: alert and awake [facility] Head: normal to inspection Eyes General: appearance normal, both eyes and all related structures Chest Other: Right breast: Implant noted firm throughout, no focal masses, no axillary or clavicular adenopathy Left breast: Implant is softer, no focal masses, no axillary or clavicular adenopathy Assessment and Plan Assessment and Plan (1) Abnormal mammogram of right breast: Plan - Dr. Cash Quintero MD: I recommended the patient stereotactic needle core biopsy right breast upper outer quadrant. The patient is aware of technique, benefit, risk alternatives. She already has a ruptured implant right breast. She is aware that there is increased risk of implant injury with this procedure. She has had an opportunity ask and have questions answered. We will schedule and expedite her care. I appreciate the opportunity of assisting with surgical management. Copy: Dr. Sarah Quintero M.D., F.A.C.S. I have re-examined the patient. There are no clinical changes since date of exam.
--- NOTE | 2021-01-17 11:00 | BRBX_PTH ---
PATIENT: VALERIA WHEELER LOC: [facility] U#:[id number] AGE/SX: 74/F ROOM: RE01/17/[address]: Dr. Cash Quintero MD : 1950 BED: DIS: SPEC #: [id number] RECD: 01/17/21 11:48 STATUS: [facility] [place] #: [id number] YAMILEX: 01/17/21 11:[address]: Cash Quintero DEPT: SURGICAL PATHOLOGY RECD BY: Sol Sanders ENTERED: 01/17/21 11:54 SP TYPE: BREAST BX OTHR DR: Dr. Sarah Akers MD Tissues: Right breast, NOS Procedures: Surgery Specimen Level IV HEADER OPERATION: Right breast stereotactic biopsy PRE-OP DIAGNOSIS: Right breast calcifications TISSUE SUBMITTED: Right breast core tissue ISCHEMIC TIME: 1 minute FIXATION TIME: 56.5 hours MICROSCOPIC DIAGNOSIS Right breast, core biopsy: Hyalinized fibroadenoma with clustered microcalcifications. Minimal fibrocystic change. No evidence of malignancy. AM:geeta 01/20/2021 MICROSCOPIC DESCRIPTION Slides are reviewed. GROSS DESCRIPTION Received in fixative is one container labeled with the patient's name and designated right breast. The specimen consists of multiple elongated fragments of mora-yellow fibroadipose tissue that in aggregate measure 4 x 1.5 x 0.2 cm. The entire specimen is submitted in two cassettes. / SJ:geeta 01/17/21 TC:5 [facility]: [id number]
--- NOTE | 2021-02-17 14:42 | PCM.OPRPT ---
Problems Associated Problem List Diagnoses (1) Breast calcification, right: Report of Operation Date of Procedure: 01/17/21 Pre-Operative Diagnosis: Microcalcifications upper outer quadrant right breast Post-Operative Diagnosis: Same Surgery/Procedure Performed:: Stereotactic needle core biopsy upper outer quadrant right breast Description of Surgical Findings:: Timeout and informed consent was obtained. The patient is taken the procedure room placed prone on the table the right breast was compressed. Images were obtained demonstrating the area of microcalcifications. The breast was prepped with Betadine. 1% lidocaine was used as local anesthetic total 10 cc was used. Local was instilled. A small stab incision was created. The 8 gauge resolved needle was placed prefire depth. Prefire films were obtained demonstrating adequate localization. Device was fired several cores were obtained. Specimen mammograms were obtained demonstrating microcalcifications present within the cores. Marking clip was left at 12 o'clock position. She was released with advised pressure was held for hemostasis Steri-Strip Telfa OpSite dressings applied. Blood loss was minimal no apparent complications the specimens were immediately transferred to formalin for analysis. Final pathology pending. Cash Quintero M.D., F.A.C.S. Surgeon: Cash Quintero Type of Anesthesia: Local
== END ==
PROVIDERS: PCP Internal Medicine; Referring Provider Surgery; Visit Provider Surgery
DX: D24.1 Benign neoplasm of right breast (principal)
CPT/HCPCS: 19081; 88305

== ENCOUNTER → 2021-02-19 | Outpatient (CLI) | payer MEDICARE, SELFPAY | END | disposition home or self-care (01) | PROVIDERS: PCP Internal Medicine; Visit Provider Internal Medicine | DX: R05.9 Cough, unspecified (principal) | CPT/HCPCS: 87635; U0005; U0003 ==

== ENCOUNTER → 2021-02-26 12:17 | Outpatient (CLI) | payer MEDICARE, SELFPAY ==
[2021-02-26 15:16] LABS: AST(SGOT) 17 U/L (15-37); Alanine Aminotransfer ALT/SGPT 30 U/L (13-56); Albumin, Serum 3.5 g/dL (3.2-5.0); Alkaline Phosphatase 82 U/L (45-117); Bilirubin, Direct 0.18 mg/dL (0.00-0.30); Cholesterol 166 mg/dL (200); Globulin 3.3 g/dL (2.2-4.2); High Density Lipoprotein 79 mg/dL; Protein, Total 6.8 g/dL (6.4-8.2); Triglycerides 78 mg/dL; Very Low Density Lipoprotein 16 mg/dL (5-40)
== END ==
PROVIDERS: PCP Internal Medicine; Referring Provider Internal Medicine; Visit Provider Internal Medicine
DX: E78.5 Hyperlipidemia, unspecified (principal); M85.80 Other specified disorders of bone density and structure, unspecified site
CPT/HCPCS: 36415; 80061; 80076; 82306

== ENCOUNTER 2021-03-14 13:00 | Outpatient (CLI) | payer MEDICARE, SELFPAY ==
[2021-03-14 13:09] VITALS: BP 145/65; PULSE 70; RESP 16; TEMP 36.9; BMI 24.4
[2021-03-14] MEDS: 0.9% Saline Lock 10 ML Syringe IV (13:14)
[2021-03-14 13:46] VITALS: BP 126/98; PULSE 69; RESP 16; TEMP 37.2
[2021-03-14 14:46] VITALS: BP 133/73; PULSE 67; RESP 16; TEMP 36.9; O2SAT 94
== END 2021-03-14 14:46 | disposition home or self-care (01) ==
LOC: MS3OUT 13:00 → MS3 13:01
PROVIDERS: PCP Internal Medicine; Referring Provider Nurse Practitioner Adult Health; Visit Provider Nurse Practitioner Adult Health
DX: Z23 Encounter for immunization (principal); U07.1 COVID-19
CPT/HCPCS: J7050; M0245; Q0245; A4216

== ENCOUNTER → 2021-08-22 | Outpatient (CLI) | payer MEDICARE, SELFPAY ==
[2021-08-22 13:06] LABS: ALB/GLOB Ratio 1.3 RATIO (0.9-2.4); AST(SGOT) 22 U/L (15-37); Alanine Aminotransfer ALT/SGPT 41 U/L (13-56); Albumin, Serum 3.8 g/dL (3.2-5.0); Alkaline Phosphatase 79 U/L (45-117); Anion Gap 5 (5-15); BUN 22 mg/dL (7-18); BUN/Creat Ratio 30.9 RATIO (10-20); Calcium,Total 9.1 mg/dL (8.5-10.1); Chloride 104 mmol/L (98-107); Cholesterol 147 mg/dL (200); Creatinine, Serum 0.71 mg/dL (0.55-1.02); EST Glomerular Filtration Rate 86 mL/min (>60); Est Glom Filt Rate - Afr Amer 104 mL/min (>60); Glucose 112 mg/dL (74-106); High Density Lipoprotein 63 mg/dL; Potassium 3.9 mmol/L (3.5-5.1); Protein, Total 6.8 g/dL (6.4-8.2); Sodium Level 138 mmol/L (136-145); Triglycerides 87 mg/dL; Very Low Density Lipoprotein 17 mg/dL (5-40)
== END | disposition home or self-care (01) ==
LOC: MTLAB 09:41
PROVIDERS: PCP Internal Medicine; Referring Provider Internal Medicine; Visit Provider Internal Medicine
DX: E78.5 Hyperlipidemia, unspecified (principal)
CPT/HCPCS: 36415; 80053; 80061

== ENCOUNTER → 2021-12-02 | Outpatient (CLI) | payer MEDICARE, SELFPAY ==
--- NOTE | 2021-12-02 08:04 | CT_ITS ---
HISTORY: Aneurysm of splenic artery. TECHNIQUE: Helically acquired images were obtained of the abdomen after IV contrast administration. A radiation dose optimization technique was used for this scan. IV Contrast dosage and agent: 100 mL Isovue 370. Oral contrast: None. 361. COMPARISON: CTA 11/01/2019. CT 05/03/2017. FINDINGS: LOWER CHEST: Calcified breast implant capsules. Minimal atelectasis in the lung bases. BOWEL: Bowel including appendix nondilated. Colonic diverticulosis. No pericolonic inflammation in the visualized portion of the colon. PERITONEUM: No significant free fluid. LIVER: Mild geographic fatty infiltration in the right lobe. Stable 2.3 cm cyst in the left lobe adjacent to the falciform ligament. GALLBLADDER/BILIARY TREE: Gallbladder present. SPLEEN: Calcified granulomas. PANCREAS/KIDNEYS/ADRENAL GLANDS: Unremarkable. VESSELS: 9 x 10 mm peripherally calcified splenic artery aneurysm at the splenic hilum. No abdominal aortic aneurysm. Mild calcified plaque in the abdominal aorta and origins of the renal arteries. ABDOMINAL WALL: Tiny fat-containing umbilical hernia. OSSEOUS STRUCTURES: Degenerative change with mild thoracolumbar scoliosis. Stable bone island in the right iliac. CT/Abdomen WITH IV Contrast IMPRESSION: No significant interval change in size of the peripherally calcified splenic artery aneurysm. Colonic diverticulosis without acute diverticulitis in the abdomen. Fatty infiltration of the liver with a stable cyst in the left lobe. Electronically Signed: Yue Ham MD at 8:31 EDT ,
[2021-12-02 08:26] LABS: CREATININE FINGERSTICK < 0.9 mg/dL (0.55-1.02); EGFR FINGERSTICK > 60.0000 mL/min (>60)
== END | disposition home or self-care (01) ==
LOC: CT 07:53
PROVIDERS: PCP Internal Medicine; Referring Provider Internal Medicine; Visit Provider Internal Medicine
DX: I72.8 Aneurysm of other specified arteries (principal); K76.89 Other specified diseases of liver
CPT/HCPCS: 74160; Q9967

== ENCOUNTER → 2022-01-06 | Outpatient (CLI) | payer MEDICARE, SELFPAY ==
--- NOTE | 2022-01-06 09:49 | BI_ITS ---
MAMMOGRAPHY - BILATERAL SCREENING REASON FOR EXAM: Female, 71 years old. Routine annual screening examination. PERTINENT HISTORY: Non-contributory. Prior right stereotactic breast biopsy. Bilateral breast implants. TECHNIQUE: Digital bilateral breast ant (3D mammographic acquisition) in the CC and MLO projections. 2-D mediolateral oblique (MLO) and craniocaudad (CC) views of both breasts were obtained. CAD: Full Field Digital Mammography with Computer Added Detection was performed. COMPARISON: Comparison is made with prior study dated 01/01/2021 and 12/13/2019. FINDINGS: Breast Composition: The breasts are heterogeneously dense, which may obscure small masses. Stable appearance of the bilateral breast implants with peripheral calcification. A tissue clip marker is seen within the 4.3 mm nodule in the upper outer quadrant of the right breast. No other significant abnormalities are identified. BI/SCRN MAMM (CAD)W/ANT BILAT IMPRESSION: Status post right breast biopsy. Stable appearance of the bilateral breast implants. Yearly follow-up mammogram recommended. (A) ASSESSMENT CATEGORY: BIRADS Category 2: Benign. A letter regarding these results will be sent to the patient by the facility within 30 days. Approximately 10% of breast cancers are not detected by mammography. A normal mammogram should not delay biopsy of a clinically suspicious abnormality. [id number] Electronically Signed: Ant Funez MD at 11:37 EDT ,
--- NOTE | 2022-01-06 10:00 | BD_ITS ---
STUDY: DUAL ENERGY X-RAY ABSORPTIOMETRY / DXA REASON FOR EXAM: Female, 71 years old. M85.89. Patient is postmenopausal. TECHNIQUE: Bone Mineral Density (BMD) measurements of lumbar spine and bilateral hips were obtained. COMPARISON: Comparison is made with prior examination of 12/13/2019. FINDINGS: Lumbar Spine (L1-L4): g/cm2 (0.695) / T-score (-3.3) / Z-score (-1.0) Findings are suggestive of osteoporosis with a high fracture risk. Left Femur Total: g/cm2 (0.703) / T-score (-2.0) / Z-score (-0.3) Left Femoral Neck: g/cm2 (0.506) / T-score (-3.1) / Z-score (-1.2) Right Femur Total: g/cm2 (0.748) / T-score (-1.6) / Z-score (0.0) Right Femoral Neck: g/cm2 (0.542) / T-score (-2.8) / Z-score (-0.8) The T-Scores on the most recent prior examination were: Lumbar Spine (L1-L4): There has been improvement of bone density since the previous examination. Left Femur Total: which represents a worsening of 1.1%. Right Femur Total: which represents an improvement of 13.1%. BD/Dexa Bone Density Study IMPRESSION: The patient is considered osteoporotic as outlined below according to World Julio C Organization (WHO) criteria with a high fracture risk. There has been improvement of bone density since the previous examination. Reference Information: The T-score is the number of standard deviations above or below the standard which is normal for young adults at their peak bone mineral density. The World Health Organization (WHO) interprets the T-scores as follows: Above -1 Normal bone density Between -1 and -2.5 Osteopenia Equal to / or below -2.5 Osteoporosis As a practical clinical guideline, osteopenia may be graded as follows: Mild -1 through -1.5 Moderate -1.6 through -2.0 Severe -2.1 through -2.4 The Z-score is the number of standard deviations above or below age-matched controls. A Z-score of less than -1.5 would be considered abnormal. References: 1. NIH Osteoporosis and Related Bone Diseases www osteo.org 2. International Society for Clinical Densitometry www iscd.org 3. National Osteoporosis Foundation www nof.org Electronically Signed: Ant Funez MD at 10:22 EDT ,
== END | disposition home or self-care (01) ==
LOC: OPBD 09:47
PROVIDERS: PCP Internal Medicine; Referring Provider Internal Medicine; Visit Provider Internal Medicine
DX: Z12.31 Encounter for screening mammogram for malignant neoplasm of breast (principal); Z98.82 Breast implant status; M85.80 Other specified disorders of bone density and structure, unspecified site; M81.0 Age-related osteoporosis without current pathological fracture; Z92.89 Personal history of other medical treatment; Z78.0 Asymptomatic menopausal state
CPT/HCPCS: 77063; 77067; 77080

== ENCOUNTER → 2022-12-11 | Outpatient (CLI) | payer MEDICARE, SELFPAY ==
[2022-12-11 10:35] LABS: Anion Gap 7 (5-15); BUN 23 mg/dL (7-18); BUN/Creat Ratio 31.7 RATIO (10-20); Calcium,Total 9.2 mg/dL (8.5-10.1); Chloride 105 mmol/L (98-107); Creatinine, Serum 0.73 mg/dL (0.55-1.02); EST Glomerular Filtration Rate 84 mL/min (>60); Est Glom Filt Rate - Afr Amer 101 mL/min (>60); Glucose 135 mg/dL (74-106); Magnesium 1.9 mg/dL (1.6-2.6); Potassium 3.9 mmol/L (3.5-5.1); Sodium Level 139 mmol/L (136-145); Troponin-I HS 6 pg/mL (3.0-54.0)
== END | disposition home or self-care (01) ==
LOC: LABSPEC 09:54
PROVIDERS: PCP Internal Medicine; Referring Provider Internal Medicine; Visit Provider Internal Medicine
DX: R20.2 Paresthesia of skin (principal); R07.89 Other chest pain
CPT/HCPCS: 80048; 83735; 84443; 84484

== ENCOUNTER → 2022-12-31 | Outpatient (CLI) | payer MEDICARE, SELFPAY ==
--- NOTE | 2022-12-31 18:09 | STRESSREP ---
Stress Test Report Exercise myocardial perfusion stress test. 72-year-old lady with a history of chest pain Stress protocol: Resting EKG demonstrates normal sinus rhythm with a rate of 65 bpm resting blood pressure is 124/72 mmHg. The patient exercised according to the regular Gregg protocol for a total duration of 6 minutes attaining a maximum heart rate of 134 bpm which was 91% of maximum predicted heart rate; the maximum workload was 7 metabolic equivalents. At rest there were no ST or T wave changes noted to suggest ischemia and at peak exercise upsloping ST changes only were noted which did not meet the criteria for ischemia. No clinical angina was noted the test was terminated due to the target heart rate being achieved/fatigue. The peak blood pressure was 148/70 mmHg. Rate-pressure product was 17,400. Myocardial perfusion protocol. 11.1 mCi of technetium 99m sestamibi was injected at rest. The patient exercised according to regular Gregg protocol for total duration of 6 minutes and at peak exercise 33.3 mCi of technetium 99m sestamibi was injected stress images were obtained stress and rest images were reconstructed in comparing the short axis vertical long and horizontal long axis. Gated images were also obtained. Perfusion SPECT analysis: Review of the stress images demonstrate normal uptake of tracer noted in all areas of the myocardium. The resting images similarly demonstrate normal uptake of tracer noted in all areas of the myocardium. No areas of reversibility are noted to suggest ischemia no previous infarct was noted. Gated SPECT analysis: The gated ejection fraction is 75%. Conclusion: Normal exercise myocardial perfusion stress test at a moderate workload Preserved ejection fraction.
== END | disposition home or self-care (01) ==
LOC: CVS 07:02
PROVIDERS: PCP Internal Medicine; Referring Provider Internal Medicine; Visit Provider Internal Medicine
DX: R07.89 Other chest pain (principal)
CPT/HCPCS: 78452; 93017; A9500; A4216

== ENCOUNTER → 2023-01-07 | Outpatient (CLI) | payer MEDICARE, SELFPAY ==
--- NOTE | 2023-01-07 09:55 | BI_ITS ---
MAMMOGRAPHY - BILATERAL SCREENING REASON FOR EXAM: Female, 72 years old. Routine annual screening examination. PERTINENT HISTORY: Non-contributory. Prior right stereotactic breast biopsy and bilateral breast implants. TECHNIQUE: Digital bilateral breast ant (3D mammographic acquisition) in the CC and MLO projections. 2-D mediolateral oblique (MLO) and craniocaudad (CC) views of both breasts were obtained. CAD: Full Field Digital Mammography with Computer Added Detection was performed. COMPARISON: Comparison is made with prior study dated January 06, 2022 and January 08, 2021. FINDINGS: Breast Composition: The breasts are heterogeneously dense, which may obscure small masses. There are no dominant masses or suspicious calcifications. Stable appearance of the bilateral breast implants with peripheral calcifications. Once again, a tissue clip marker is seen within a 4.3 mm nodule in the upper-outer quadrant of the right breast. No other significant abnormalities are identified. There has been no significant change since the prior study. BI/SCRN MAMM (CAD)W/ANT BILAT IMPRESSION: Stable bilateral screening mammogram. Yearly follow-up mammogram recommended. (A) ASSESSMENT CATEGORY: BIRADS Category 2: Benign. A letter regarding these results will be sent to the patient by the facility within 30 days. Approximately 10% of breast cancers are not detected by mammography. A normal mammogram should not delay biopsy of a clinically suspicious abnormality. [id number] Electronically Signed: Ant Funez MD at 13:30 EDT ,
== END | disposition home or self-care (01) ==
LOC: OPBI 09:54
PROVIDERS: PCP Internal Medicine; Referring Provider Internal Medicine; Visit Provider Internal Medicine
DX: Z12.31 Encounter for screening mammogram for malignant neoplasm of breast (principal)
CPT/HCPCS: 77063; 77067

== ENCOUNTER → 2024-01-11 | Outpatient (CLI) | payer MEDICARE, SELFPAY ==
--- NOTE | 2024-01-11 09:33 | BI_ITS ---
MAMMOGRAPHY - BILATERAL SCREENING 3-D TOMOSYNTHESIS REASON FOR EXAM: Female, 73 years old. SCRN MAMM (CAD)W/ANT BILAT -- Encounter for screening mammogram for malignant neoplasm of breas PERTINENT HISTORY: No significant family history. TECHNIQUE: 2-D mammograms and 3-D Tomosynthesis of the breast (s) were performed. CAD was performed. COMPARISON: 01/07/2023 FINDINGS: The breast composition is heterogeneously dense that can obscure small breast masses. Scattered benign calcifications are seen. No dense spiculated masses or suspicious microcalcifications are identified. No architectural distortion is identified. There is no skin thickening or retraction. There has been no significant change since the prior study. Bilateral retroglandular silicone implants appear intact. BI/SCRN MAMM (CAD)W/ANT BILAT IMPRESSION: No mammographic signs of malignancy. Routine yearly mammograms recommended. ASSESSMENT CATEGORY: BIRADS Category 1: Negative. A letter regarding these results will be sent to the patient by the facility within 30 days. FOLLOW UP RECOMMENDATION: Yearly follow up mammogram recommended. (A) Approximately 10% of breast cancers are not detected by mammography. A normal mammogram should not delay biopsy of a clinically suspicious abnormality. Electronically Signed: Josh Rodriguez MD at 12:24 EDT ,
--- NOTE | 2024-01-11 09:36 | BD_ITS ---
STUDY: DUAL ENERGY X-RAY ABSORPTIOMETRY / DXA REASON FOR EXAM: Female, 73 years old. [id number] -- Postmenopausal status TECHNIQUE: Bone Mineral Density (BMD) measurements of lumbar spine and bilateral hips were obtained. COMPARISON: Comparison is made with prior study dated January 06, 2022. FINDINGS: Lumbar Spine (L1-L4): g/cm2 (0.778) / T-score (-2.7) / Z-score (-0.3) Findings are suggestive of osteoporosis with a high fracture risk. Left Femur Total: g/cm2 (0.671) / T-score (-2.2) / Z-score (-0.5) Left Femoral Neck: g/cm2 (0.527) / T-score (-2.9) / Z-score (-0.9) Right Femur Total: g/cm2 (0.694) / T-score (-2.0) / Z-score (-0.3) Right Femoral Neck: g/cm2 (0.501) / T-score (-3.1) / Z-score (-1.1) The T-Scores on the most recent prior examination were: Lumbar Spine (L1-L4): There has been improvement of bone density since the previous examination. Left Femur Total: which represents a worsening of 4.9%. Right Femur Total: which represents a worsening of 7.3%. BD/Dexa Bone Density Study IMPRESSION: The patient is considered osteoporotic as outlined below according to World Julio C Organization (WHO) criteria with a high fracture risk. There has been worsening of bone density since the previous examination. Reference Information: The T-score is the number of standard deviations above or below the standard which is normal for young adults at their peak bone mineral density. The World Health Organization (WHO) interprets the T-scores as follows: Above -1 Normal bone density Between -1 and -2.5 Osteopenia Equal to / or below -2.5 Osteoporosis As a practical clinical guideline, osteopenia may be graded as follows: Mild -1 through -1.5 Moderate -1.6 through -2.0 Severe -2.1 through -2.4 The Z-score is the number of standard deviations above or below age-matched controls. A Z-score of less than -1.5 would be considered abnormal. References: 1. NIH Osteoporosis and Related Bone Diseases www osteo.org 2. International Society for Clinical Densitometry www iscd.org 3. National Osteoporosis Foundation www nof.org Electronically Signed: Ant Funez MD at 13:46 EDT ,
== END | disposition home or self-care (01) ==
LOC: OPBD 09:32
PROVIDERS: PCP Internal Medicine; Referring Provider Internal Medicine; Visit Provider Internal Medicine
DX: Z12.31 Encounter for screening mammogram for malignant neoplasm of breast (principal); Z78.0 Asymptomatic menopausal state
CPT/HCPCS: 77063; 77067; 77080

== ENCOUNTER → 2024-08-07 | Outpatient (CLI) | payer MEDICARE, SELFPAY ==
--- NOTE | 2024-08-07 08:26 | US_ITS ---
PROCEDURE: ABD LIMITED W/ ELASTOGRAPHY REASON FOR EXAM: ABD LIMITED US WITH ELASTOGRAPHY - ELEVATED LIVER ENZYMES COMPARISON: None. TECHNIQUE: Right upper quadrant abdominal ultrasound. Hipscan ElastQ Imaging shear wave elastography for non-invasive assessment of liver tissue stiffness. Hipscan EPIQ Elite. FINDINGS: LIVER: Size: Unremarkable Length: 14.4 cm Echotexture: Normal Contour: Normal Lesions: None identified Elastography: EQI Med: 5.8 kPa EQI Med Hever: 1.4 m/s IQR/Med: 19 %* GALLBLADDER: Normal COMMON BILE DUCT: Normal measuring 3.2 mm . PANCREAS: Normal Visualized portions of the right kidney are unremarkable. No right upper quadrant ascites. US/ABD Limited w/ Elastography IMPRESSION: NO TO MILD HEPATIC FIBROSIS Reference Values: SRU <1.37 m/s (5.7kPa): No to mild fibrosis 1.37 m/s - 2.2 m/s: Moderate to severe fibrosis >2.2 m/s (15kPa): Significant fibrosis / cirrhosis METAVIR Score F2 or higher: 1.34 m/s (5.7kPa) F3 or higher: 1.55 m/s (7.3kPa) F4: 1.80 m/s (10kPa) * If the IQR/Med is >30%, the variance in the measurements is a large and the a ccuracy of the measurement may be in question. Reading Location: [id number]
== END | disposition home or self-care (01) ==
PROVIDERS: PCP Internal Medicine; Referring Provider Internal Medicine; Visit Provider Internal Medicine
DX: R74.8 Abnormal levels of other serum enzymes (principal)
CPT/HCPCS: 91200; 76705; 76981

== ENCOUNTER → 2024-11-07 | Outpatient (CLI) | payer MEDICARE, SELFPAY ==
--- NOTE | 2024-11-07 10:02 | CDU_ITS ---
Reason For Study Reason For Study: carotid stenosis Rt. Velocities/BP Lt. Velocities/BP Prox CCA 72.4/13.8 cm/sec. Prox CCA 79.3/16.7 cm/sec. Mid CCA 67.6/15.7 cm/sec. Mid CCA 81.8/17.9 cm/sec. Dist CCA 56.6/15.0 cm/sec. Dist CCA 73.2/16.7 cm/sec. Prox ICA 72.6/11.2 cm/sec. Prox ICA 58.4/10.6 cm/sec. Mid ICA 65.1/18.8 cm/sec. Mid ICA 71.1/23.2 cm/sec. Dist ICA 90.4/29.0 cm/sec. Dist ICA 69.9/18.3 cm/sec. Rt. ICA/CCA = 90.4/67.6=1.3. Lt. ICA/CCA = 71.1/81.8=0.9. Prox ECA 83.0/12.2 cm/sec. Prox ECA 62.1/14.2 cm/sec. Rt. Vert. 43.1/6.2 cm/sec. Lt. Vert. 67.4/24.4 cm/sec. Right Extracranial There is intimal thickening but no significant atherosclerotic plaque noted in the right common carotid artery. There is heterogeneous, irregular atherosclerotic plaque noted in the right internal carotid artery. There is homogeneous, smooth atherosclerotic plaque noted in the right external carotid artery. Antegrade flow is noted in the right vertebral artery. Left Extracranial There is intimal thickening but no significant atherosclerotic plaque noted in the left common carotid artery. There is heterogeneous, irregular atherosclerotic plaque noted in the left internal carotid artery. There is intimal thickening but no significant atherosclerotic plaque noted in the left external carotid artery. Antegrade flow is noted in the left vertebral artery. Procedure Carotid Duplex 79146. This is a Carotid Duplex examination using B-mode, color flow and specral Doppler. Exam performed in department. VL/Carotid Duplex Ultrasound Interpretation Summary Mild (<50%) stenosis right extracranial internal carotid. Mild (<50%) stenosis left extracranial internal carotid. Patent and antegrade vertebrals bilaterally. Ordering Physician: Sarah Akers Referring Physician: Sarah Akers Performed By: Hui Herron, ANT, RVT
== END | disposition home or self-care (01) ==
LOC: CVS 10:01
PROVIDERS: PCP Internal Medicine; Referring Provider Internal Medicine; Visit Provider Internal Medicine
DX: I65.23 Occlusion and stenosis of bilateral carotid arteries (principal)
CPT/HCPCS: 93880

== ENCOUNTER → 2024-12-15 | Outpatient (CLI) | payer MEDICARE, SELFPAY ==
--- NOTE | 2024-12-15 13:25 | CT_ITS ---
PROCEDURE: ABDOMEN WITH IV CONTRAST 12/15/2024 REASON FOR EXAM: LIVER CYST TECHNIQUE: Procedure Code: CTABDW Modality: CT Procedure: ABDOMEN WITH IV CONTRAST Multiplanar Sagittal and Coronal images were obtained. One or more dose reduction techniques were used (e.g., Automated exposure control, adjustment of the mA and/or kV according to patient size, use of iterative reconstruction technique. CONTRAST: Isovue-300 VOLUME: 100 mL RADIATION DOSE SUMMARY: CTDlvol: 7.1 mGy DLP: 538.42 mGycm COMPARISON: Prior study dated December 02, 2021. FINDINGS: Stable bilateral breast implants with the rim calcification of the implants worse on the right side. This is unchanged. Lung bases: The lung bases are clear. Liver: Once again, there are 2 small adjacent cysts in the medial anterior aspect of the right lobe of the liver. These are essentially unchanged. Gallbladder: The gallbladder is unremarkable. Spleen: Calcified splenic granuloma. Stable 1 cm calcified splenic artery aneurysm at the level of the splenic hilum. Pancreas: Normal size without evidence of mass surrounding inflammation or ductal dilation. Adrenals: The adrenal glands are unremarkable. Kidneys: Normal renal sizes. No hydronephrosis. Bowel: Sigmoid diverticula. Lymph nodes: Unremarkable. Vasculature: Mild atherosclerotic plaque formation of the abdominal aorta. Peritoneum / Retroperitoneum: Unremarkable Bones: Degenerative changes of the spine. CT/Abdomen WITH IV Contrast IMPRESSION: Stable small hepatic cysts in the medial aspect of the right lobe of the liver. Stable 1 cm calcified splenic artery aneurysm at the level of the splenic hilum . Reading Location: [place] [id number]
== END | disposition home or self-care (01) ==
LOC: CT 13:17
PROVIDERS: PCP Internal Medicine; Referring Provider Internal Medicine; Visit Provider Internal Medicine
DX: K76.89 Other specified diseases of liver (principal)
CPT/HCPCS: 74160; Q9967

== ENCOUNTER → 2025-02-14 | Outpatient (CLI) | payer MEDICARE, SELFPAY ==
--- NOTE | 2025-02-14 10:45 | BI_ITS ---
EXAM: SCRN MAMM (CAD)W/ANT BILAT DATE: 02/14/2025 CLINICAL HISTORY: F, Age 74 y/o , SCRN MAMM (CAD)W/ANT BILAT No family TECHNIQUE: Procedure Code: [id number] Modality: MG Procedure: SCRN MAMM (CAD)W/ANT BILAT COMPARISON: Prior exam(s) dated January 11, 2024.. FINDINGS: TISSUE DENSITY: The breasts are heterogeneously dense, which may obscure small masses. Bilateral Breast Mammographic Findings: No significant masses, calcifications or other abnormalities are identified. Stable appearance of the bilateral breast implants. Stable calcification along the rim of the implants. No suspicious masses, areas of developing architectural distortion, or suspicious calcifications. There has been no significant interval change. BI/SCRN MAMM (CAD)W/ANT BILAT IMPRESSION: Stable bilateral screening mammogram. OVERALL FINAL ASSESSMENT BI-RADS 2: BENIGN RECOMMENDATION: Routine annual follow-up in 1 Year Additional Recommendation none A letter with findings and recommendations will be mailed to the patient. Reading Location: [id number]
== END | disposition home or self-care (01) ==
LOC: OPBI 10:42
PROVIDERS: PCP Internal Medicine; Referring Provider Internal Medicine; Visit Provider Internal Medicine
DX: Z12.31 Encounter for screening mammogram for malignant neoplasm of breast (principal)
CPT/HCPCS: 77063; 77067